=== PATIENT | male | born 1980 | race Caucasian/White ===

== ENCOUNTER 2016-11-30 03:36 | Inpatient (IN) | payer BC ==
[~2016-11-30] VITALS: Ht 170.2 cm; Wt 51.1 kg
[2016-11-30 05:03] LABS: HEMATOCRIT 39.2 % (38.0-50.0); MCHC 34.7 G/DL (30.0-36.0); MCV 92.2 FL (86-99); MEAN PLAT.VOLUME 10.1 uM^3 (9.0-12.4); PLATELET COUNT 246 K/uL (156-360); RBC DIS.WIDTH-CV 12.8 % (11.8-14.6); RBC DIS.WIDTH-SD 43.3 % (39-53); RED BLOOD COUNT 4.25 M/uL (4.00-5.50)
[2016-11-30 05:13] LABS: CHLORIDE 107 mEq/L (99-109); POTASSIUM 3.4 mEq/L (3.7-5.4); SODIUM 139 mEq/L (136-147)
[2016-11-30 05:14] LABS: GLUCOSE 95 mg/dL (70-99)
[2016-11-30 05:16] LABS: ANION GAP 12 MEQ/L (2-14)
[2016-11-30 05:18] LABS: GFR ESTIMATE (CALCULATED) > 59 mL/min/
[2016-11-30 05:19] LABS: UREA NITROGEN (BUN) 10 mg/dL (9-23)
[2016-11-30 05:25] LABS: TROP-I INTERPRETATION NEGATIVE; TROPONIN-I < 0.01 ng/mL (0.0-0.30)
[2016-11-30 07:34] VITALS: BP 110/66
[2016-11-30 11:21] VITALS: BP 108/47
[2016-11-30 16:47] VITALS: BP 126/76
[2016-11-30 19:28] VITALS: BP 132/75
[2016-11-30 23:18] VITALS: BP 122/74
[2016-12-01 08:05] VITALS: BP 143/64
[2016-12-01 15:13] VITALS: BP 121/74
[2016-12-01] MEDS ORDERED: NICOTINE PATCH1 EAC2 TD (17:00)
[2016-12-01] MEDS ORDERED: ULTRAM50 MG PO (17:00)
== END 2016-12-01 19:28 | disposition home or self-care (01) | DRG 201 ==
LOC: EME → EDBD 03:36 → 3EAST 05:30 → EDOF 05:30 → ENRESERV 05:43 → 3EAST 07:15
PROVIDERS: Emergency Medicine
DX: J93.83 Other pneumothorax (principal); F17.200 Nicotine dependence, unspecified, uncomplicated
CPT/HCPCS: 71010; 71020; 71250; 80048; 84484; 85027; 93005; 99281; 99284; J1644; J1885